=== PATIENT | male | born 1980 | race Caucasian/White ===

== ENCOUNTER 2023-09-04 12:39 | Emergency (ER) | payer BC ==
[~2023-09-04] VITALS: Ht 185.4 cm; Wt 70.5 kg
[2023-09-04] MEDS ORDERED: NAPR-56 PO (15:08)
[2023-09-04 15:18] VITALS: BP 133/90; PULSE 85; RESP 18; TEMP 97.9; O2SAT 98
== END 2023-09-04 15:20 | disposition home or self-care (01) ==
LOC: ER 12:40
DX: S46.911A Strain of unspecified muscle, fascia and tendon at shoulder and upper arm level, right arm, initial encounter (principal); S46.912A Strain of unspecified muscle, fascia and tendon at shoulder and upper arm level, left arm, initial encounter; T33.832A Superficial frostbite of left toe(s), initial encounter; T33.831A Superficial frostbite of right toe(s), initial encounter; T69.9XXA Effect of reduced temperature, unspecified, initial encounter; V89.9XXA Person injured in unspecified vehicle accident, initial encounter; Y93.29 Activity, other involving ice and snow; Y92.89 Other specified places as the place of occurrence of the external cause; Y99.8 Other external cause status
CPT/HCPCS: 99282